=== PATIENT | male | born 1960 ===

== ENCOUNTER 2022-12-27 13:05 | Emergency (ER) | payer OTHER ==
[2022-12-27] MEDS ORDERED: NA CHLORIDE 0.9% 1,000 ML ONE (13:29)
[2022-12-27 13:35] LABS: Absolute Lymphocytes (CBC) 1.1 K/uL (0.7-4.9); Hematocrit 45.2 % (39.6-49.0); Lymphocytes % 13.7 % (15.3-44.8); MCV 96.2 fL (80-100); MPV 6.7 fL (7.6-11.3)
[2022-12-27] MEDS ORDERED: MORPHINE 4 MG/ML SYR ONE (13:38)
[2022-12-27] MEDS ORDERED: ONDANSETRON 4 MG/2 ML VIAL ONE (13:38)
[2022-12-27 13:39] LABS: Protime INR 0.96
[2022-12-27 13:53] LABS: Albumin 3.6 g/dL (3.4-5.0); Bilirubin Direct 0.2 mg/dL (0-0.2); Bilirubin Indirect, Calculated 0.4 mg/dL (0.2-0.8); Bilirubin Total 0.6 mg/dL (0.2-1.0); Magnesium 2.2 mg/dL (1.6-2.4); Potassium 4.1 mEq/L (3.5-5.1); Troponin High Sensitivity 4.8 pg/mL (<58.9)
--- NOTE | 2022-12-27 14:02 | RAD REPORT ---
EXAM DESCRIPTION: RAD - Foot Right 3 View - 12/27/2022 1:46 pm CLINICAL HISTORY: Right foot pain status post injury FINDINGS: Mildly to moderately displaced intra-articular fracture distal fourth proximal phalanx Small avulsion fracture proximal aspect of fourth distal phalanx No dislocation
--- NOTE | 2022-12-27 14:40 | RAD REPORT ---
EXAM DESCRIPTION: Jose F Single View12/27/2022 1:46 pm CLINICAL HISTORY: Chest pain COMPARISON: none FINDINGS: The lungs appear clear of acute infiltrate. The heart is normal size IMPRESSION: No acute abnormalities displayed
--- NOTE | 2022-12-27 14:40 | RAD REPORT ---
EXAM DESCRIPTION: CT - Head C Spine Cap Giselle Bryan - 12/27/2022 2:14 pm CLINICAL HISTORY: Head and neck injury with chest and abdominal pain status post fall. Head and neck pain . TECHNIQUE: Computed axial tomography of the head and cervical spine was obtained Computed axial tomography of the chest, abdomen and pelvis was obtained. 100 cc Isovue-300 was given intravenously coronal and sagittal reconstruction was performed. All CT scans are performed using dose optimization technique as appropriate and may include automated exposure control or mA/KV adjustment according to patient size. COMPARISON: none FINDINGS: An intracranial bleed is not seen. The ventricles are normal in caliber. An extra-axial fl uid collection is not noted. Fluid within the sinuses is not seen A cervical fracture is not seen. No dislocation is seen. 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 A pleural effusion is not present. A lung contusion is not seen. The liver, spleen, pancreas, adrenals, kidneys and bladder do not demonstrate an acute traumatic inju ry The appendix is dilated and fluid-filled measuring 1 millimeters. Several thoracic and lumbar vertebra have a H shaped appearance. This is nonspecific but can be seen with anemia Right hip prosthesis in place IMPRESSION: No acute intracranial abnormality is seen A cervical fracture is not visualized. If the patient continues have symptoms to suggest intracranial /spinal cord pathology then MRI would be recommended. No acute traumatic injury involving the chest, abdomen or pelvis is seen. Dilated appendix probably a mucocele
--- NOTE | 2022-12-27 14:41 | RAD REPORT ---
EXAM DESCRIPTION: RAD - Shoulder Right 2 View - 12/27/2022 1:46 pm CLINICAL HISTORY: Right shoulder pain FINDINGS: No fracture or dislocation is seen.
--- NOTE | 2022-12-27 14:44 | RAD REPORT ---
EXAM DESCRIPTION: RAD - Wrist Left 3 View - 12/27/2022 1:46 pm CLINICAL HISTORY: Left wrist pain status post injury FINDINGS: 6 millimeter and 3 millimeter bony/ calcific densities lie along the dorsal aspect of the wrist. I suspect both are chronic. However, it is possible that 1 or both represent acute avulsion f ractures. Clinical correlation is needed see if patient has point tenderness in this region to suggest this. No dislocation 7 millimeter scaphoid cyst
--- NOTE | 2022-12-27 15:19 | EDPHYS ---
Physician Documentation [facility] Name: Al Guardado Age: 62 yrs Sex: Male : 1960 Arrival Date: 12/27/2022 Time: 13:05 Bed 14 Private MD: ED Physician Anshu Mtz HPI: 12/27 13:49 This 62 yrs old Male presents to ER via Ambulatory with complaints of Fall lluvia Injury. 13:49 The patient or guardian complains of decreased range of motion, pain, that is acute. lluvia right shoulder. Context: The problem was sustained at home, resulted from a fall, down stairs. Onset: The symptoms/episode began/occurred just prior to arrival. Modifying factors: the symptoms are alleviated by remaining still, The symptoms are aggravated by movement. Historical: - Allergies: 13:21 No Known Allergies; hb - Home Meds: 13:21 atorvastatin oral [Active]; citalopram oral [Active]; hb - PMHx: 13:21 high cholesterol; Anxiety; hb - PSHx: 13:21 Right Hip Replacement; hb - Immunization history:: Adult Immunizations up to date. - Social history:: Smoking status: Patient denies any tobacco usage or history of. - Immunization history: Last tetanus immunization: unknown. ROS: 13:52 Constitutional: Negative for fever, chills, and weight loss, Eyes: Negative for injury, lluvia pain, redness, and discharge, ENT: Negative for injury, pain, and discharge, Neck: Negative for injury, pain, and swelling, Cardiovascular: Negative for chest pain, palpitations, and edema, Respiratory: Negative for shortness of breath, cough, wheezing, and pleuritic chest pain, Abdomen/GI: Negative for abdominal pain, nausea, vomiting, diarrhea, and constipation, Back: Negative for injury and pain, : Negative for injury, bleeding, discharge, and swelling, Skin: Negative for injury, rash, and discoloration, Neuro: Negative for headache, weakness, numbness, tingling, and seizure, Psych: Negative for depression, anxiety, suicide ideation, homicidal ideation, and hallucinations, Allergy/Immunology: Negative for hives, rash, and allergies, Endocrine: Negative for neck swelling, polydipsia, polyuria, polyphagia, and marked weight changes, Hematologic/Lymphatic: Negative for swollen nodes, abnormal bleeding, and unusual bruising. 13:52 MS/extremity: Positive for decreased range of motion, pain, tenderness, of the left hand, right foot, anterior aspect of right shoulder and posterior aspect of right shoulder. Exam: 13:52 Constitutional: This is a well developed, well nourished patient who is awake, alert, lluvia and in no acute distress. Head/Face: Normocephalic, atraumatic. Eyes: Pupils equal round and reactive to light, extra-ocular motions intact. Lids and lashes normal. Conjunctiva and sclera are non-icteric and not injected. Cornea within normal limits. Periorbital areas with no swelling, redness, or edema. ENT: Nares patent. No nasal discharge, no septal abnormalities noted. Tympanic membranes are normal and external auditory canals are clear. Oropharynx with no redness, swelling, or masses, exudates, or evidence of obstruction, uvula midline. Mucous membranes moist. Neck: Trachea midline, no thyromegaly or masses palpated, and no cervical lymphadenopathy. Supple, full range of motion without nuchal rigidity, or vertebral point tenderness. No Meningismus. Chest/axilla: Normal chest wall appearance and motion. Nontender with no deformity. No lesions are appreciated. Cardiovascular: Regular rate and rhythm with a normal S1 and S2. No gallops, murmurs, or rubs. Normal PMI, no JVD. No pulse deficits. Respiratory: Lungs have equal breath sounds bilaterally, clear to auscultation and percussion. No rales, rhonchi or wheezes noted. No increased work of breathing, no retractions or nasal flaring. Abdomen/GI: Soft, non-tender, with normal bowel sounds. No distension or tympany. No guarding or rebound. No evidence of tenderness throughout. Back: No spinal tenderness. No costovertebral tenderness. Full range of motion. Skin: Warm, dry with normal turgor. Normal color with no rashes, no lesions, and no evidence of cellulitis. Neuro: Awake and alert, GCS 15, oriented to person, place, time, and situation. Cranial nerves II-XII grossly intact. Motor strength 5/5 in all extremities. Sensory grossly intact. Cerebellar exam normal. Normal gait. Psych: Awake, alert, with orientation to person, place and time. Behavior, mood, and affect are within normal limits. 13:52 ECG was reviewed by the Attending Physician. 13:52 Musculoskeletal/extremity: Extremities: noted in the scalp, left hand, right foot and right arm: decreased ROM, pain, DVT Exam: No signs of deep vein thrombosis. no swelling, no tenderness, negative Homans' sign noted on exam, no appreciated bluish discoloration, no erythema, no increased warmth, pain. Vital Signs: 13:20 BP 105 / 88; Pulse 67; Resp 18; Temp 98.2; Pulse Ox 97% on R/A; Weight 108.86 kg; hb Height 6 ft. 0 in. ; Pain 7/10; 14:50 BP 111 / 77; Pulse 77; Resp 16 S; Pulse Ox 97% on R/A; kc6 13:20 Body Mass Index 32.55 (108.86 kg, 182.88 cm) hb 13:20 Pain Scale: Adult hb [place] Coma Score: 13:50 Eye Response: spontaneous(4). Motor Response: obeys commands(6). Verbal Response: kc6 oriented(5). Total: 15. Trauma Score (Adult): 13:50 Eye Response: spontaneous(1); Verbal Response: oriented(1); Motor Response: obeys kc6 commands(2); Systolic BP: > 89 mm Hg(4); Respiratory Rate: 10 to 29 per min(4); Kelsy Score: 15; Trauma Score: 12 MDM: 13:15 Patient medically screened. lluvia 13:54 Differential diagnosis: Anterior dislocation with fracture, Posterior dislocation with lluvia fracture, humeral head fracture, glenoid fracture, DJD, tendonitis. Differential diagnosis: abrasion, closed head injury, contusion, fracture, laceration, multiple trauma, sprain, strain. Data reviewed: vital signs, nurses notes, lab test result(s), EKG, radiologic studies, CT scan, plain films. Consideration of Admission/Observation Escalation of care including admission/observation considered. I considered the following discharge prescriptions or medication management in the emergency department Medications were administered in the Emergency Department. See MAR. Test considered but Not performed: MRI: no mri. Care significantly affected by the following chronic conditions: high cholesterol, anxiey. Counseling: I had a detailed discussion with the patient and/or guardian regarding: the historical points, exam findings, and any diagnostic results supporting the discharge/admit diagnosis, lab results, radiology results, the need for outpatient follow up. 12/27 13:15 Order name: Basic Metabolic Panel; Complete Time: 14:54 lluvia 12/27 13:15 Order name: CBC with Diff; Complete Time: 14:54 12/27 13:15 Order name: LFT's; Complete Time: 14:54 12/27 13:15 Order name: Magnesium; Complete Time: 14:54 12/27 13:15 Order name: NT PRO-BNP; Complete Time: 14:54 12/27 13:15 Order name: PT-INR; Complete Time: 14:54 12/27 13:15 Order name: Troponin HS; Complete Time: 14:54 [facility] 12/27 13:22 Order name: Lipase; Complete Time: 14:54 [facility] 12/27 13:15 Order name: XRAY Chest (1 view); Complete Time: 14:54 12/27 13:22 Order name: Foot Right 3 View XRAY; Complete Time: 14:54 12/27 13:22 Order name: Shoulder Right (2 View) XRAY; Complete Time: 14:54 12/27 13:22 Order name: Wrist Left (3 View) XRAY; Complete Time: 14:54 [facility] 12/27 13:22 Order name: CT Traumagram (Head C Spine CAP W Con); Complete Time: 14:54 [facility] 12/27 15:22 Order name: INCENTIVE SPIROMETRY 12/27 13:15 Order name: EKG; Complete Time: 13:16 12/27 13:15 Order name: Cardiac monitoring; Complete Time: 13:23 [facility] 12/27 13:15 Order name: EKG - Nurse/Tech; Complete Time: 13:23 12/27 13:15 Order name: IV Saline Lock; Complete Time: 13:26 [facility] 12/27 13:15 Order name: Labs collected and sent; Complete Time: 13:26 [facility] 12/27 13:15 Order name: O2 Per Protocol; Complete Time: 13:17 12/27 13:15 Order name: O2 Sat Monitoring; Complete Time: 13:17 lluvia 12/27 15:11 Order name: Post-op shoe; Complete Time: 15:27 12/27 15:11 Order name: Misc. Order: anabela tape toes left 3-4-5; Complete Time: 15:27 [facility] 12/27 15:11 Order name: Splint - Volar Wrist Splint; Complete Time: 15: lluvia 12/27 15:13 Order name: Sling: right shoulder; Complete Time: 15: lluvia EC:52 Rate is 69 beats/min. Rhythm is regular. QRS [place] is Normal. [place] interval is normal. QRS lluvia interval is normal. QT interval is normal. No Q waves. T waves are Normal. No ST changes noted. Clinical impression: Normal ECG and No evidence of ischemia. Interpreted by me. Reviewed by me. Administered Medications: 13:16 CANCELLED (Duplicate Order): NS 0.9% IV 1000 ml IV at 125 ml/hr continuous lluvia 13:26 Drug: NS 0.9% IV 1000 ml Route: IV; Rate: 125 ml/hr; Site: right antecubital; kc6 15:43 Follow up: Response: No adverse reaction; IV Status: Order to discontinue infusion kc6 14:52 Not Given (Patient Refused): morphine IVP or IV 2 mg IVP once over 4 mins kc6 14:52 Not Given (Patient Refused): morphine IVP or IV 2 mg IVP once over 4 mins kc6 14:53 Not Given (Patient Refused): Ondansetron IVP 4 mg IVP once; over 2 minutes kc6 Disposition Summary: 12/27/22 15:19 Discharge Ordered Location: Home lluvia Problem: new lluvia Symptoms: have improved lluvia Condition: Stable lluvia Diagnosis - Fall (on) (from) unspecified stairs and steps lluvia - Sprain of carpal joint of left wrist lluvia - Fracture of proximal phalanx of lesser toe(s) - proximal left 4th lluvia - Pain in right shoulder - internal derangement lluvia - Strain of muscle and tendon of unspecified wall of thorax lluvia Followup: lluvia - With: Private Physician - When: 2 - 3 days - Reason: Recheck today's complaints, Continuance of care, Re-evaluation by your physician Followup: lluvia - With: Ted Hunt MD - When: 2 - 3 days - Reason: Recheck today's complaints, Re-evaluation by your physician Discharge Instructions: - Discharge Summary Sheet lluvia - Joint Pain lluvia - Musculoskeletal Pain lluvia - Shoulder Pain lluvia - How to Use an Incentive Spirometer lluvia - Shoulder Pain, [id number] lluvia - Arthritis, [id number] lluvia - How to Use Cold Therapy lluvia - Incentive Spirometer Record [facility] Forms: - Medication Reconciliation Form llvuia - Thank You Letter lluvia - Antibiotic Education lluvia - Prescription Opioid Use [facility] - [email or web address] lluvia Prescriptions: - acetaminophen-codeine 300-30 mg Oral tablet - take 2 tablet by ORAL route every 6 hours; 24 tablet; Refills: 0, Product [facility] Selection Permitted - Diclofenac Sodium 75 mg Oral tablet,delayed release (DR/EC) - take 1 tablet by ORAL route 2 times per day; 20 tablet; Refills: 0, Product [facility] Selection Permitted - Cyclobenzaprine 5 mg Oral Tablet - take 1 tablet by ORAL route 3 times per day As needed; 15 tablet; Refills: 0, [facility] Product Selection Permitted Signatures: Dispatcher [employer] Anshu Knapp MD MD cha Baxter, Heather RN RN Christiana Elias RN RN kc6 Corrections: (The following items were deleted from the chart) 13:16 13:15 NS 0.9% IV 1000 ml IV at 125 ml/hr continuous ordered. lluvia teixeira
--- NOTE | 2022-12-27 15:19 | ER ---
Nurse's Notes [facility] Name: Al Guardado Age: 62 yrs Sex: Male : 1960 Arrival Date: 12/27/2022 Time: 13:05 Bed 14 Private MD: Diagnosis: Fall (on) (from) unspecified stairs and steps;Sprain of carpal joint of left wrist;Fracture of proximal phalanx of lesser toe(s)-proximal left 4th;Pain in right shoulder-internal derangement;Strain of muscle and tendon of unspecified wall of thorax Presentation: 12/27 13:20 Chief complaint: Fell form 10 foot ladder approx 1 hour ago, c/o pain in neck, left hb face, left wrist, and right shoulder. Negative LOC, not on blood thinners. Coronavirus screen: At this time, the client does not indicate any symptoms associated with coronavirus-19. Ebola Screen: No symptoms or risks identified at this time. Initial Sepsis Screen: Does the patient meet any 2 criteria? No. Patient's initial sepsis screen is negative. Does the patient have a suspected source of infection? No. Patient's initial sepsis screen is negative. Risk Assessment: Do you want to hurt yourself or someone else? Patient reports no desire to harm self or others. Onset of symptoms was December 27, 2022. 13:20 Method Of Arrival: Ambulatory hb 13:20 Acuity: ANJALI 2 hb 13:24 Care prior to arrival: None. Mechanism of Injury: Fall from ladder approximately 10 hb feet. Trauma event details: Injury occurred in the [facility], Injury occurred: at home. Injury occurred: December 27, 2022 Injury occurred at: 12:30. Trauma Activation: Alert Physician: ED Physician; Name: Dr. Mtz; Notified At: 13:19; Arrived At: 13:20 Physician: General Surgeon; Name: ; Notified At: 13:19; Arrived At: Physician: Radiology; Name: ; Notified At: 13:19; Arrived At: Physician: Respiratory; Name: ; Notified At: 13:19; Arrived At: Physician: Lab; Name: ; Notified At: 13:19; Arrived At: Historical: - Allergies: 13:21 No Known Allergies; hb - Home Meds: 13:21 atorvastatin oral [Active]; citalopram oral [Active]; hb - PMHx: 13:21 high cholesterol; Anxiety; hb - PSHx: 13:21 Right Hip Replacement; hb - Immunization history:: Adult Immunizations up to date. - Social history:: Smoking status: Patient denies any tobacco usage or history of. - Immunization history: Last tetanus immunization: unknown. Screenin:48 Abuse screen: Denies threats or abuse. Denies injuries from another. Tuberculosis kc6 screening: No symptoms or risk factors identified. 13:49 [facility] ED Fall Risk Assessment (Adult) History of falling in the last 3 months, kc6 including since admission Yes- single mechanical fall (1 pt) Confusion or Disorientation No (0 pts) Intoxicated or Sedated No (0 pts) Impaired Gait No (0 pts) Mobility Assist Device Used No (0 pt) Altered Elimination No (0 pt) Score/Fall Risk Level 0 - 2 = Low Risk Oriented to surroundings, Maintained a safe environment, Educated pt \T\ family on fall prevention, incl call for assistance when getting out of bed, Assessed \T\ reinforced patient's understanding of fall precautions, Hourly rounding (assess needs \T\ fall precautionary measures) done. Nutritional screening: No deficits noted. Primary Survey: 13:19 NO uncontrolled hemorrhage observed. A: The client is awake and alert. The airway is hb patent. Breathing/Chest: Spontaneous respiratory effort, equal unlabored respirations, breath sounds clear bilaterally, regular pattern, symmetrical chest rise and fall. Circulation: No external hemorrhage present. Regular and strong central pulse, skin warm/dry/normal color. Disability Client is alert. Exposure/Environment: No obvious injuries are noted at this time. 13:50 Reassessment Alertness and Airway: Awake and alert. The airway is patent. Breathing: kc6 Spontaneous respiratory effort, equal unlabored respirations, breath sounds clear bilaterally, regular pattern with symmetrical chest rise and fall. Circulation: No external hemorrhage noted. Regular and strong central pulse, skin warm/dry/normal color. Disability: Pupils Pupils are equal, round, reactive to light and accomodation. Alert. Assessment: 13:48 General: Appears in no apparent distress. comfortable, Behavior is calm, cooperative, kc6 appropriate for age. Pain: Complains of pain in right shoulder, left wrist, right foot. Neuro: Level of Consciousness is awake, alert, obeys commands, Oriented to person, place, time, situation, Appropriate for age. EENT: No signs and/or symptoms were reported regarding the EENT system. Cardiovascular: Capillary refill < 3 seconds. Respiratory: Airway is patent Trachea midline Respiratory effort is even, unlabored, Respiratory pattern is regular, symmetrical. GI: No signs and/or symptoms were reported involving the gastrointestinal system. : No signs and/or symptoms were reported regarding the genitourinary system. Derm: No signs and/or symptoms reported regarding the dermatologic system. Skin is intact, Skin is pink, warm \T\ dry. Musculoskeletal: No signs and/or symptoms reported regarding the musculoskeletal system. Circulation, motion, and sensation intact. Capillary refill < 3 seconds, Range of motion: intact in all extremities. 14:50 Reassessment: Patient appears in no apparent distress at this time. No changes from kc6 previously documented assessment. Patient and/or family updated on plan of care and expected duration. Pain level reassessed. Patient is alert, oriented x 3, equal unlabored respirations, skin warm/dry/pink. Vital Signs: 13:20 BP 105 / 88; Pulse 67; Resp 18; Temp 98.2; Pulse Ox 97% on R/A; Weight 108.86 kg; hb Height 6 ft. 0 in. ; Pain 7/10; 14:50 BP 111 / 77; Pulse 77; Resp 16 S; Pulse Ox 97% on R/A; kc6 13:20 Body Mass Index 32.55 (108.86 kg, 182.88 cm) hb 13:20 Pain Scale: Adult hb K[place] Coma Score: 13:50 Eye Response: spontaneous(4). Motor Response: obeys commands(6). Verbal Response: kc6 oriented(5). Total: 15. Trauma Score (Adult): 13:50 Eye Response: spontaneous(1); Verbal Response: oriented(1); Motor Response: obeys kc6 commands(2); Systolic BP: > 89 mm Hg(4); Respiratory Rate: 10 to 29 per min(4); Kelsy Score: 15; Trauma Score: 12 ED Course: 13:07 Patient arrived in ED. ts1 13:15 Anshu Mtz MD is Attending Physician. lluvia 13:18 Christiana Jerome, RN is Primary Nurse. kc6 13:21 Triage completed. hb 13:22 Patient has correct armband on for positive identification. Bed in low position. Call mm9 light in reach. Side rails up X 1. Warm blanket given. Pillow given. Pulse ox on. NIBP on. 13:22 EKG done, by ED staff, reviewed by Anshu Mtz MD. mm9 13:27 Initial lab(s) drawn, by ED staff, sent to lab. mm9 13:28 pvc monitor on. mm9 13:48 XRAY Chest (1 view) In Process Unspecified. EDMS 13:48 Foot Right 3 View XRAY In Process Unspecified. EDMS 13:48 Shoulder Right (2 View) XRAY In Process Unspecified. EDMS 13:48 Wrist Left (3 View) XRAY In Process Unspecified. EDMS 13:50 Patient maintains SpO2 saturation greater than 95% on room air. kc6 13:50 Thermoregulation: warm blanket given to patient. kc6 13:51 Arm band placed on. kc6 14:16 CT Traumagram (Head C Spine CAP W Con) In Process Unspecified. EDMS 15:15 Ted Hunt MD is Referral Physician. lluvia 15:27 INCENTIVE SPIROMETRY Sent. mm9 15:27 Velcro wrist splint applied to left wrist. Ortho shoe applied to right foot. Sling mm9 applied to right arm. BUDDIE TAPE LITTLE TOES. 15:43 No provider procedures requiring assistance completed. IV discontinued, intact, kc6 bleeding controlled, No redness/swelling at site. Pressure dressing applied. Administered Medications: 13:16 CANCELLED (Duplicate Order): NS 0.9% IV 1000 ml IV at 125 ml/hr continuous lluvia 13:26 Drug: NS 0.9% IV 1000 ml Route: IV; Rate: 125 ml/hr; Site: right antecubital; kc6 15:43 Follow up: Response: No adverse reaction; IV Status: Order to discontinue infusion kc6 14:52 Not Given (Patient Refused): morphine IVP or IV 2 mg IVP once over 4 mins kc6 14:52 Not Given (Patient Refused): morphine IVP or IV 2 mg IVP once over 4 mins kc6 14:53 Not Given (Patient Refused): Ondansetron IVP 4 mg IVP once; over 2 minutes kc6 Medication: 15:44 VIS not applicable for this client. kc6 Outcome: 15:19 Discharge ordered by MD. teixeira 15:43 Discharged to home ambulatory, with significant other. kc6 15:43 Condition: improved 15:43 Discharge instructions given to patient, Instructed on discharge instructions, follow up and referral plans. medication usage, Demonstrated understanding of instructions, follow-up care, medications, Prescriptions given X 3. 15:44 Patient left the ED. kc6 Signatures: Dispatcher [employer] EDMS Anshu Mtz MD MD cha Baxter, Heather, RN RN Christiana Elias RN RN kc6 Lynda Aguirre mm9 Joyce Vail PAS PAS ts1
--- NOTE | 2022-12-29 17:16 | EKG ---
Test Date: 2022-12-27 Test Time: 13:28:38 [employer]: NAHUM MEASUREMENT RESULTS: Intervals: Rate: 69 UT: 168 QRSD: 76 QT: 380 QTc: 407 [place]: P: 46 UT: 168 QRS: 71 T: 66 INTERPRETIVE STATEMENTS: Normal sinus rhythm Normal ECG No previous ECG available for comparison Electronically Signed On 12-29-22 17:13:25 CDT by Drake Galeano
== END 2022-12-27 15:44 | disposition home or self-care (01) ==
LOC: ER 13:05
DX: S92.512A Displaced fracture of proximal phalanx of left lesser toe(s), initial encounter for closed fracture (principal); S49.91XA Unspecified injury of right shoulder and upper arm, initial encounter; S63.512A Sprain of carpal joint of left wrist, initial encounter; S29.019A Strain of muscle and tendon of unspecified wall of thorax, initial encounter; W11.XXXA Fall on and from ladder, initial encounter; Y93.9 Activity, unspecified; Y92.9 Unspecified place or not applicable
CPT/HCPCS: 96361; 93005; 85025; 80048; 36415; 83735; 85610; 80076; 84484; 83690; 83880; 70450; 72125; 71260; 74177; 71045; 73630; 73030; 73110; 96360; 99285; Q9967; J7030; J2405